=== PATIENT | male | born 1980 | race Caucasian/White ===

== ENCOUNTER 2022-01-20 15:12 | Emergency (ER) | payer SELFPAY ==
[~2022-01-20] VITALS: Ht 170.2 cm; Wt 79.0 kg
[2022-01-20] MEDS ORDERED: KETOROLAC 30MG/ML VIAL IV STA (16:19)
[2022-01-20] MEDS ORDERED: SODIUM CHLORIDE 0.9% 1,000 ML IV ONE (16:30)
[2022-01-20 16:48] LABS: HEMATOCRIT. 42.8 % (42.0-52.0); MEAN CORPUSCULAR HEMOGLOBIN 29.6 pg (28.0-32.0); MEAN CORPUSCULAR VOLUME 90.7 fL (80.0-94.0); PLATELET 233 x1000/uL (130-400); RED BLOOD CELL COUNT 4.72 mill/uL (4.7-6.1); RED CELL DISTRIBUTION WIDTH 13.4 % (11.6-14.6)
[2022-01-20 16:59] LABS: CHLORIDE 106 mEq/L (98-107)
[2022-01-20 17:08] LABS: ETHANOL BLOOD < 10 mg/dL
[2022-01-20 17:09] VITALS: BP 155/83
[2022-01-20] MEDS ORDERED: CEPHALEXIN 250MG CAPSULE PO NR (19:15)
[2022-01-20] MEDS ORDERED: TAMSULOSIN HCL 0.4MG SR CAPSULE PO NR (19:15)
[2022-01-20] MEDS ORDERED: MORPHINE SULFATE 4 MG/ML CPJ (NOT FOR IM USE) IV NR (19:15)
[2022-01-20] MEDS ORDERED: ONDA4TAB50 MT (19:45)
[2022-01-20] MEDS ORDERED: HYDR-4001 MT (19:45)
[2022-01-20] MEDS ORDERED: TAMS-11 PO (19:45)
[2022-01-20] MEDS ORDERED: CEPH500C2 MT (19:45)
[2022-01-20] MEDS ORDERED: IBUP-2029 MT (19:45)
[2022-01-20 19:59] LABS: PLATELET ESTIMATE NORMAL
== END 2022-01-20 21:15 | disposition home or self-care (01) ==
LOC: ER 15:12
DX: N20.0 Calculus of kidney (principal)
CPT/HCPCS: 36415; 74176; 80053; 80320; 83690; 85025; 96361; 96374; 96375; 99284; J1885; J2270; J7030; G0480